=== PATIENT | male | born 1980 ===

== ENCOUNTER 2019-11-16 23:24 | Emergency (ER) | payer SELFPAY ==
[2019-11-16 23:43] VITALS: BP 146/77
--- NOTE | 2019-11-17 00:54 | Emergency Department Report ---
ED General Adult HPI - General Chief complaint: Urogenital-Male Stated complaint: PAIN/KNOT ON NECK/GROIN Time Seen by Provider: 11/17/19 00:21 Source: patient Mode of arrival: Ambulatory Limitations: No Limitations - History of Present Illness Initial comments: 39-year-old -[place] male presents emergency department complaining of a few year history of a posterior neck cyst which is beginning to have a little bit of pain. Ports no fever, chills, sweats no no discharge no trauma. He also reports having a painless mass to his right groin area which he states disappears when he pushes. States occasionally since pain down to his testicle region but reports no dysuria no hematuria no testicular swelling, no fever, chills, sweats no nausea vomiting no abdominal pain. Radiation: non-radiation Quality: dull Consistency: constant Improves with: none Associated Symptoms: denies other symptoms Treatments Prior to Arrival: none - Related Data Allergies Allergy/AdvReac Type Severity Reaction Status Date / Time No Known Allergies Allergy Unverified 11/16/19 23:40 ED Review of Systems ROS: Stated complaint: PAIN/KNOT ON NECK/GROIN Other details as noted in HPI ED Past Medical Hx - Past Medical History Previous Medical History?: Yes Hx Psychiatric Treatment: Yes (bipolar) - Surgical History Past Surgical History?: No - Social History Smoking Status: Current Every Day Smoker Substance Use Type: Alcohol ED Physical Exam - General Limitations: No Limitations General appearance: alert, in no apparent distress - Head Head exam: Present: atraumatic, normocephalic - Eye Eye exam: Present: normal appearance - ENT ENT exam: Present: mucous membranes moist - Neck Neck exam: Present: normal inspection, tenderness, full ROM - Expanded Neck Exam Expanded 1 - Cystic mass. - Respiratory Respiratory exam: Present: normal lung sounds bilaterally. Absent: respiratory distress - Cardiovascular Cardiovascular Exam: Present: regular rate, normal rhythm. Absent: systolic murmur, diastolic murmur, rubs, gallop - GI/Abdominal GI/Abdominal exam: Present: soft, normal bowel sounds, hernia (Right reducible inguinal hernia not involving the testicles.) - Rectal Rectal exam: Present: deferred - Extremities Exam Extremities exam: Present: normal inspection - Back Exam Back exam: Present: normal inspection - Neurological Exam Neurological exam: Present: alert, oriented X3 - Psychiatric Psychiatric exam: Present: normal affect, normal mood - Skin Skin exam: Present: warm, dry, intact, normal color. Absent: rash ED Course Vital Signs 11/16/19 23:42 Temperature 98.1 F Pulse Rate 79 Respiratory 12 Rate Blood Pressure 146/77 O2 Sat by Pulse 97 Oximetry ED Medical Decision Making - Medical Decision Making 31-year-old -[place] male with a cyst to his posterior neck region 1 of a chronic etiology. 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 Also regards to his right inguinal hernia it is 100% reducible no signs of incarceration or infection Critical care attestation.: If time is entered above; I have spent that time in minutes in the direct care of this critically ill patient, excluding procedure time. ED Disposition Clinical Impression: Inguinal hernia, Cyst of neck Disposition: - TO HOME OR SELFCARE Is pt being admited?: No Does the pt Need Aspirin: No Condition: Stable Instructions: Inguinal Hernia (ED) Referrals: PRIMARY CARE, [Primary Care Provider] - 3-5 Days MARLON LUDWIG DO [Staff Physician] - 3-5 Days
== END 2019-11-17 01:20 | disposition home or self-care (01) ==
LOC: ED 23:24
DX: K40.90 Unilateral inguinal hernia, without obstruction or gangrene, not specified as recurrent (principal); R22.1 Localized swelling, mass and lump, neck; F17.200 Nicotine dependence, unspecified, uncomplicated; F31.9 Bipolar disorder, unspecified
CPT/HCPCS: 99282